=== PATIENT | male | born 1945 | race Caucasian/White ===

== ENCOUNTER → 2019-08-24 | Outpatient (CLI) | payer MEDICARE ==
[~2019-08-24] MED LIST: ALBU3IS INH; ALBU90OI INH; ALLO300 PO; AMLO10 PO; ATOR10 PO; BUDE10.22 INH; CARV25 PO; DOCU100 PO; DULO30 PO; FURO20 PO; GABA100 PO; IBUP600 PO; INDO25 PO; LOSA50 PO; POTA8 PO; QUET25 PO; SILD50TA PO; TRAZ50 PO; ZOLP5 PO
[2019-08-24 19:32] LABS: BASOPHILS ABSOLUTE AUTO 0.04 K/mm3 (0.00-0.23); BASOPHILS PERCENT AUTO 1 % (0-2); EOSINOPHILS ABSOLUTE AUTO 0.11 K/mm3 (0.00-0.68); EOSINOPHILS PERCENT AUTO 1 % (0-6); Hematocrit 47.2 % (37.0-53.0); Hemoglobin 15.8 g/dL (13.5-17.5); IMMATURE GRAN ABSOLUTE AUTO 0.02 K/mm3 (0.00-0.10); IMMATURE GRAN PERCENT AUTO 0 % (0-1); LYMPHOCYTES ABSOLUTE AUTO 2.68 K/mm3 (0.84-5.20); LYMPHOCYTES PERCENT AUTO 31 % (21-46); MONOCYTES ABSOLUTE AUTO 0.58 K/mm3 (0.16-1.47); MONOCYTES PERCENT AUTO 7 % (4-13); Mean Corpuscular HGB 32.1 pg (26.0-34.0); Mean Corpuscular HGB Conc 33.5 g/dL (31.5-36.5); Mean Corpuscular Volume 96 fL (80-100); Mean Platelet Volume 11.2 fL (9.1-12.4); NEUTROPHILS ABSOLUTE AUTO 5.22 K/mm3 (1.96-9.15); NEUTROPHILS PERCENT AUTO 60 % (41-73); Platelet Count 226 K/mm3 (150-400); RDW Coefficient Variation 13.6 % (11.7-14.2); RDW Standard Deviation 47.6 fL (35.1-46.3); Red Blood Cell Count 4.92 M/mm3 (4.30-5.90); White Blood Cell Count 8.65 K/mm3 (4.00-11.30)
[2019-08-24 20:18] LABS: Very Low Density Lipoprot Chol 22 mg/dL (6-32)
[2019-08-24 20:26] LABS: Alanine Aminotransfer (ALT/SGP 15 U/L (12-78); Albumin, Blood 3.4 g/dL (3.4-5.0); Albumin/Globulin Ratio 0.9 (0.8-1.8); Alk Phos 94 U/L (50-136); Anion Gap 9 mmol/L (6-16); Aspartate Aminotrans (AST/SGOT 15 U/L (12-37); Bilirubin, Total 0.9 mg/dL (0.1-1.0); Blood Urea Nitrogen 27 mg/dL (8-24); Bun/Creatinine Ratio 19.4 (12.0-20.0); CO2, Blood 30 mmol/L (21-32); Calcium, Blood 9.4 mg/dL (8.5-10.1); Chloride, Blood 100 mmol/L (98-108); Cholesterol 204 mg/dL (50-200); Creatinine, Blood 1.39 mg/dL (0.60-1.20); Globulin, Blood 3.9 g/dL (2.2-4.0); Glomerular Filtration Rate 53 (60-); Glucose, Blood 125 mg/dL (70-99); HDL Cholesterol 34 mg/dL (>39); LDL Direct Measurement 150 mg/dL (0-130); LDL/HDL RATIO 4.4; Low Density Lipoprotein Chol 148 mg/dL (0-110); Potassium, Blood 3.9 mmol/L (3.5-5.5); Sodium, Blood 139 mmol/L (136-145); Total Protein, Blood 7.3 g/dL (6.4-8.2); Triglycerides 110 mg/dL (30-160)
== END | disposition home or self-care (01) ==
LOC: LAB SHORT 12:10 → LAB 12:10
PROVIDERS: Nurse Practitioner Family
DX: I10 Essential (primary) hypertension (principal)
CPT/HCPCS: 80053; 80061; 83721; 85025

== ENCOUNTER → 2020-09-13 | Outpatient (CLI) | payer MEDICARE ==
[2020-09-13 17:33] LABS: BASOPHILS ABSOLUTE AUTO 0.03 K/mm3 (0.00-0.23); BASOPHILS PERCENT AUTO 0 % (0-2); EOSINOPHILS ABSOLUTE AUTO 0.12 K/mm3 (0.00-0.68); EOSINOPHILS PERCENT AUTO 2 % (0-6); Hematocrit 41.9 % (37.0-53.0); Hemoglobin 14.4 g/dL (13.5-17.5); IMMATURE GRAN ABSOLUTE AUTO 0.02 K/mm3 (0.00-0.10); IMMATURE GRAN PERCENT AUTO 0 % (0-1); LYMPHOCYTES ABSOLUTE AUTO 1.82 K/mm3 (0.84-5.20); LYMPHOCYTES PERCENT AUTO 26 % (21-46); MONOCYTES ABSOLUTE AUTO 0.41 K/mm3 (0.16-1.47); MONOCYTES PERCENT AUTO 6 % (4-13); Mean Corpuscular HGB 33.3 pg (26.0-34.0); Mean Corpuscular HGB Conc 34.4 g/dL (31.5-36.5); Mean Corpuscular Volume 97 fL (80-100); Mean Platelet Volume 10.7 fL (9.1-12.4); NEUTROPHILS PERCENT AUTO 65 % (41-73); Platelet Count 243 K/mm3 (150-400); RDW Coefficient Variation 15.2 % (11.7-14.2); RDW Standard Deviation 52.5 fL (35.1-46.3); Red Blood Cell Count 4.32 M/mm3 (4.30-5.90)
[2020-09-13 18:07] LABS: Uric Acid, Blood 4.2 mg/dL (3.5-7.2)
[2020-09-13 18:42] LABS: Albumin, Blood 3.2 g/dL (3.4-5.0); Albumin/Globulin Ratio 0.9 (0.8-1.8); Bilirubin, Total 0.3 mg/dL (0.1-1.0); Bun/Creatinine Ratio 24.6 (12.0-20.0); Calcium, Blood 8.7 mg/dL (8.5-10.1); Creatinine, Blood 1.26 mg/dL (0.60-1.20); Globulin, Blood 3.5 g/dL (2.2-4.0); Potassium, Blood 3.1 mmol/L (3.5-5.5); Total Protein, Blood 6.7 g/dL (6.4-8.2)
[2020-09-13 18:55] LABS: Cholesterol 175 mg/dL (50-200); HDL Cholesterol 29 mg/dL (>39); LDL/HDL RATIO 3.6; Low Density Lipoprotein Chol 105 mg/dL (0-110); Triglycerides 204 mg/dL (30-160); Very Low Density Lipoprot Chol 40 mg/dL (6-32)
== END | disposition home or self-care (01) ==
LOC: LAB 16:55
PROVIDERS: Nurse Practitioner Family
DX: E78.5 Hyperlipidemia, unspecified (principal); M10.9 Gout, unspecified; I10 Essential (primary) hypertension
CPT/HCPCS: 80053; 80061; 84550; 85025

== ENCOUNTER 2021-10-11 12:53 | Observation (INO) | payer OTHER ==
[~2021-10-11] VITALS: Ht 170.2 cm; Wt 80.5 kg
[2021-10-11 14:07] LABS: BASOPHILS ABSOLUTE AUTO 0.03 K/mm3 (0.00-0.23); BASOPHILS PERCENT AUTO 0 % (0-2); EOSINOPHILS ABSOLUTE AUTO 0.03 K/mm3 (0.00-0.68); EOSINOPHILS PERCENT AUTO 0 % (0-6); Hemoglobin 17.4 g/dL (13.5-17.5); IMMATURE GRAN ABSOLUTE AUTO 0.03 K/mm3 (0.00-0.10); IMMATURE GRAN PERCENT AUTO 0 % (0-1); LYMPHOCYTES ABSOLUTE AUTO 1.31 K/mm3 (0.84-5.20); LYMPHOCYTES PERCENT AUTO 14 % (21-46); MONOCYTES ABSOLUTE AUTO 0.62 K/mm3 (0.16-1.47); MONOCYTES PERCENT AUTO 7 % (4-13); Mean Corpuscular HGB 32.6 pg (26.0-34.0); Mean Corpuscular HGB Conc 36.3 g/dL (31.5-36.5); Mean Corpuscular Volume 90 fL (80-100); Mean Platelet Volume 11.4 fL (9.1-12.4); NEUTROPHILS ABSOLUTE AUTO 7.46 K/mm3 (1.96-9.15); NEUTROPHILS PERCENT AUTO 79 % (41-73); Platelet Count 228 K/mm3 (150-400); RDW Coefficient Variation 12.5 % (11.7-14.2); Red Blood Cell Count 5.34 M/mm3 (4.30-5.90); White Blood Cell Count 9.48 K/mm3 (4.00-11.30)
[2021-10-11 14:15] LABS: Albumin, Blood 3.3 g/dL (3.4-5.0); Albumin/Globulin Ratio 0.8 (0.8-1.8); Bilirubin, Total 1.9 mg/dL (0.1-1.0); Bun/Creatinine Ratio 9.3 (12.0-20.0); Calcium, Blood 9.4 mg/dL (8.5-10.1); Creatinine, Blood 1.61 mg/dL (0.60-1.20); Globulin, Blood 4.3 g/dL (2.2-4.0); Potassium, Blood 2.9 mmol/L (3.5-5.5); Total Protein, Blood 7.6 g/dL (6.4-8.2); Troponin I 0.026 ng/mL (0.000-0.040)
[2021-10-11 15:23] LABS: Influenza A, PCR NEGATIVE (NEGATIVE); Influenza B, PCR NEGATIVE (NEGATIVE); Resp Syncytial Virus, PCR NEGATIVE (NEGATIVE); SARS-Cov-2 (COVID-19) PCR, MMC NEGATIVE (NEGATIVE)
[2021-10-11] MEDS ORDERED: Ventolin/Proventil INH (16:19)
[2021-10-11] MEDS ORDERED: ALLO300 PO (16:21)
[2021-10-11] MEDS ORDERED: AMLO10 PO (16:22)
[2021-10-11] MEDS ORDERED: ASPI81CH PO (16:23)
[2021-10-11] MEDS ORDERED: ATOR10 PO (16:24)
[2021-10-11] MEDS ORDERED: Symbicort 160 mcg-4. INH (16:25)
[2021-10-11] MEDS ORDERED: COREG25 MG PO (16:26)
[2021-10-11] MEDS ORDERED: CYMBALTA30 M1 PO (16:27)
[2021-10-11] MEDS ORDERED: GABA100 PO (16:29)
[2021-10-11] MEDS ORDERED: MEMA10 PO (16:30)
--- NOTE | 2021-10-11 19:25 | NUR ---
PT HERE VIA TOD FROM ER. PT ABLE TO STAND AND TRANSFER HIMSELF TO MEDICAL FLOOR BED. PT DENIES ANY CHEST PAIN. IV'S INFUSING TO LEFT WRIST IV SITE WITHOUT COMPLICATIONS. PT CURRENTLY ON THE TELEPHONE WITH HIS BROTHER. CALL LIGHT REVIEWED WITH PATIENT.
[2021-10-11 21:43] LABS: Creatine Kinase MB 3.8 ng/mL (0.0-3.6); Creatine Kinase MB Index 2.4 (0.0-4.0); Troponin I 0.035 ng/mL (0.000-0.040)
--- NOTE | 2021-10-12 02:33 | NUR ---
PT CONTINUES TO DENY CHEST PAIN. PT IS AWAKE, WATCHING TV. WARM BLANKET GIVEN. PT IS ANTICIPATING GOING HOME THIS MORNING. PT DENIES SOB, PT ON RA. CALL LIGHT WITHIN REACH. BED IN LOW POSITION. PT HAS USED THE CALL LIGHT APPROPRIATELY.
--- NOTE | 2021-10-12 04:19 | NUR ---
AM LABS DRAWN. DECAF COFFEE PROVIDED PER REQUEST OF PATIENT. PT HASN'T SLEPT TONIGHT. PT CONTINUES TO DENY SOB/CHEST PAIN. CALL LIGHT WITHIN REACH. BED ALARM ON FOR PT SAFETY.
[2021-10-12 04:23] LABS: Hematocrit 37.9 % (37.0-53.0); Hemoglobin 13.9 g/dL (13.5-17.5); Mean Corpuscular HGB Conc 36.7 g/dL (31.5-36.5); Mean Corpuscular Volume 90 fL (80-100); Mean Platelet Volume 10.1 fL (9.1-12.4); Platelet Count 171 K/mm3 (150-400); RDW Coefficient Variation 12.5 % (11.7-14.2); RDW Standard Deviation 41.1 fL (35.1-46.3); Red Blood Cell Count 4.21 M/mm3 (4.30-5.90); White Blood Cell Count 8.05 K/mm3 (4.00-11.30)
[2021-10-12 05:01] LABS: Anion Gap 7 mmol/L (6-16); Blood Urea Nitrogen 16 mg/dL (8-24); CHOL/HDL RATIO 3.7; CO2, Blood 22 mmol/L (21-32); CPK Creatine Kinase 186 U/L (39-308); Calcium, Blood 8.5 mg/dL (8.5-10.1); Chloride, Blood 110 mmol/L (98-108); Cholesterol 118 mg/dL (50-200); Creatine Kinase MB 4.5 ng/mL (0.0-3.6); Creatine Kinase MB Index 2.4 (0.0-4.0); Creatinine, Blood 1.45 mg/dL (0.60-1.20); Glomerular Filtration Rate 47 (60-); Glucose, Blood 87 mg/dL (70-99); HDL Cholesterol 32 mg/dL (>39); LDL/HDL RATIO 2.1; Low Density Lipoprotein Chol 66 mg/dL (0-110); Potassium, Blood 3.5 mmol/L (3.5-5.5); Sodium, Blood 139 mmol/L (136-145); Triglycerides 100 mg/dL (30-160); Troponin I 0.036 ng/mL (0.000-0.040); Very Low Density Lipoprot Chol 20 mg/dL (6-32)
--- NOTE | 2021-10-12 05:21 | NUR ---
SHIFT SUMMARY - PT HAS CONTINUED TO DENY CHEST PAIN/DISCOMFORT OF SOB. PT IS ANTICIPATING DC HOME TODAY. BENADRYL GIVEN PO WITHOUT THE DESIRED RESULT OF SLEEP TONIGHT. PT ACCIDENTALLY PULLED OUT HIS LEFT WRIST IV SITE. R AC IV SITE WNL. PT DID HAVE LOOSE STOOLS LAST NOC. PT HAS DECAF COFFEE AT BEDSIDE. CALL LIGHT WITHIN REACH. BED IN LOW POSITION. FLUIDS AT BEDSIDE. WILL CONTINUE TO MONITOR UNTIL AM SHIFT CHANGE.
--- NOTE | 2021-10-12 18:18 | NUR ---
ECHOCARDIOGRAM COMPLETE
--- NOTE | 2021-10-12 18:36 | NUR ---
SHIFT SUMMARY PT DID GET A VISIT FROM MD AFTER PREVIOUS EPISODE AND C/O ANXIETY NOTED. SHE DID ORDER A 1 TIME DOSE OF ATIVAN WHICH WAS GIVEN. PT WAS STILL A BIT ANXIOUS AND WANTING TO LEAVE BUT SEEN AND SPOKE TO DR. MYERS AND AGREED TO STAY UNTIL TOMORROW AND SEE HOW NIGHT GOES. PLAN IS TO SEE PT/OT IN AM AND SEE RECOMMENDATIONS THEN POSS DC HOME. VSS NOW AND BP IS BETTER AFTER ADDING NEW NORVASC ORDER. NAD NOTED. REMAINS ON ROOM AIR WITH NORMAL SATS. NO C/O SOB, PAIN, OR DISCOMFORT VOICED. WILL CONTINUE TO MONITOR IN CARE.
--- NOTE | 2021-10-13 03:44 | NUR ---
PATIENT SLEPT IN SHORT INCREMENTS LAST NIGHT. WHEN AWAKE HE VERBALIZED THAT HE IS CONCERNED OVER COMING TO THE LAST PART OF HIS LIFE. THE PATIENT VERBALIZES THAT HE KNOWS HE'S UNSTEADY ON HIS FEET AND THAT HE IS SOMETIMES FORGETFUL. A& O. VERY ANXIOUS AT TIMES. VITALS REVIEWED.
[2021-10-13] MEDS ORDERED: ALLO100 PO (12:19)
[2021-10-13] MEDS ORDERED: LOSA50 PO (12:35)
[2021-10-13] MEDS ORDERED: SYMBICORT 160-4.6 GM INH (13:34)
--- NOTE | 2021-10-13 15:41 | NUR ---
PT DISCHARGED TO HOME TODAY WITH DISCHARGE ORDERS. PT HAS BEEN VERY ANXIOUS MOST OF THE SHIFT, BUT WAS COOPERATIVE, REDIRECTABLE AND PLEASANT. PT ABLE TO PARTICIPATE WITH PHYSICAL THERAPIST, PT SAFE TO RELEASE TO HOME WALKER AND CANE AVAILABLE PER PT. PT HAS BEEN AMBULATORY ALL SHIFT. DENIES ANY PAIN/PRESSURE, BP STABLE WAS RECHECKED BEFORE DISCHARGE PER DR DINH BP 109/81. DISCHARGE INSTRUCTIONS DISCLOSED WITH THE PT, PT VERBALIZED UNDERSTANDING. PRESCRIPTION SENT TO [facility]. ALL BELONGINGS SENT WITH THE PT, MEREDITH'S(BEST FRIEND) DAUGHTER PROVIDED TRANSPORTATION. PT ACCOMPANIED VIA WHEELCHAIR FOR TRANSPORT.
== END 2021-10-13 15:06 | disposition home or self-care (01) ==
LOC: ER 12:53 → ERHOLD 12:54 → MEDS 19:30
PROVIDERS: Emergency Medicine; Student in an Organized Health Care Education/Training Program; ADMIT Internal Medicine
DX: R07.2 Precordial pain (principal); N17.9 Acute kidney failure, unspecified; I13.0 Hypertensive heart and chronic kidney disease with heart failure and stage 1 through stage 4 chronic kidney disease, or unspecified chronic kidney disease; N18.31 Chronic kidney disease, stage 3a; I50.9 Heart failure, unspecified; E83.42 Hypomagnesemia; E87.6 Hypokalemia; M19.90 Unspecified osteoarthritis, unspecified site; E78.5 Hyperlipidemia, unspecified; J44.9 Chronic obstructive pulmonary disease, unspecified; M10.9 Gout, unspecified; F03.90 Unspecified dementia, unspecified severity, without behavioral disturbance, psychotic disturbance, mood disturbance, and anxiety; F43.10 Post-traumatic stress disorder, unspecified; F32.A Depression, unspecified; Z88.8 Allergy status to other drugs, medicaments and biological substances; Z91.013 Allergy to seafood; Z96.642 Presence of left artificial hip joint; Z20.822 Contact with and (suspected) exposure to COVID-19
CPT/HCPCS: 0241U; 36415; 71046; 80048; 80053; 80061; 82550; 82553; 83735; 83880; 84145; 84484; 85025; 85027; 93005; 93010; 93306; 94640; 94664; 94760; 96365; 96366; 96367; 96368; 97116; 97162; 97530; 99285-25; A9270; J1650; J3475; J3480; J7030

== ENCOUNTER 2021-10-14 14:16 | Emergency (ER) | payer OTHER ==
[~2021-10-14] VITALS: Ht 162.6 cm; Wt 74.8 kg
[~2021-10-14 14:16] MED LIST changes: +ALLO100 PO; +ASPI81CH PO; +COREG25 MG PO; +CYMBALTA30 M1 PO; +MEMA10 PO; +SYMBICORT 160-4.6 GM INH; +Symbicort 160 mcg-4. INH; +Ventolin/Proventil INH
== END 2021-10-14 14:59 | disposition home or self-care (01) ==
LOC: ER 14:16
DX: F41.9 Anxiety disorder, unspecified (principal); Z88.8 Allergy status to other drugs, medicaments and biological substances; Z91.013 Allergy to seafood; Z91.018 Allergy to other foods; Z79.899 Other long term (current) drug therapy; Z79.82 Long term (current) use of aspirin; I50.9 Heart failure, unspecified; N18.9 Chronic kidney disease, unspecified; E78.5 Hyperlipidemia, unspecified; M10.9 Gout, unspecified; J44.9 Chronic obstructive pulmonary disease, unspecified; Z87.891 Personal history of nicotine dependence
CPT/HCPCS: 99283

== ENCOUNTER 2022-03-09 21:59 | Inpatient (IN) | payer OTHER ==
[~2022-03-09] VITALS: Ht 177.8 cm; Wt 88.1 kg
[~2022-03-09 21:59] MED LIST changes: -CYMBALTA30 M1 PO; +DULO60 PO
[2022-03-09 22:40] LABS: BASOPHILS ABSOLUTE AUTO 0.05 K/mm3 (0.00-0.23); BASOPHILS PERCENT AUTO 0 % (0-2); EOSINOPHILS ABSOLUTE AUTO 0.03 K/mm3 (0.00-0.68); EOSINOPHILS PERCENT AUTO 0 % (0-6); Hematocrit 47.1 % (37.0-53.0); Hemoglobin 16.8 g/dL (13.5-17.5); IMMATURE GRAN ABSOLUTE AUTO 0.09 K/mm3 (0.00-0.10); IMMATURE GRAN PERCENT AUTO 1 % (0-1); LYMPHOCYTES ABSOLUTE AUTO 2.06 K/mm3 (0.84-5.20); LYMPHOCYTES PERCENT AUTO 14 % (21-46); MONOCYTES PERCENT AUTO 7 % (4-13); Mean Corpuscular HGB 32.5 pg (26.0-34.0); Mean Corpuscular HGB Conc 35.7 g/dL (31.5-36.5); Mean Corpuscular Volume 91 fL (80-100); Mean Platelet Volume 10.4 fL (9.1-12.4); NEUTROPHILS ABSOLUTE AUTO 11.72 K/mm3 (1.96-9.15); NEUTROPHILS PERCENT AUTO 78 % (41-73); Platelet Count 231 K/mm3 (150-400); RDW Coefficient Variation 12.7 % (11.7-14.2); RDW Standard Deviation 42.4 fL (35.1-46.3); Red Blood Cell Count 5.17 M/mm3 (4.30-5.90); White Blood Cell Count 14.95 K/mm3 (4.00-11.30)
[2022-03-09 23:13] LABS: Albumin, Blood 3.4 g/dL (3.4-5.0); Albumin/Globulin Ratio 0.9 (0.8-1.8); Bilirubin, Total 2.3 mg/dL (0.1-1.0); Bun/Creatinine Ratio 14.6 (12.0-20.0); Calcium, Blood 8.9 mg/dL (8.5-10.1); Creatinine, Blood 1.44 mg/dL (0.60-1.20); Globulin, Blood 3.8 g/dL (2.2-4.0); Potassium, Blood 3.2 mmol/L (3.5-5.5); Total Protein, Blood 7.2 g/dL (6.4-8.2)
[2022-03-10 03:12] LABS: Source, Urine Straight Cath
[2022-03-10 03:43] LABS: Bilirubin, Urine Neg (Neg); Blood, Urine 1+ (Neg); Glucose Qualitative, Urine Neg (Neg); Ketones, Urine 3+ (Neg); Leukocyte Esterase, Urine Neg (Neg); Nitrite, Urine Neg (Neg); Protein, Urine 2+ (Neg); Specific Gravity, Urine 1.025 (1.003-1.022); Urobilinogen, Urine 1+ (Normal)
[2022-03-10 04:03] LABS: Appearance, Urine Clear (Clear); Color, Urine Yellow (P-Yellow)
[2022-03-10 04:06] LABS: Bacteria Rare /hpf; Granular Casts Rare /lpf (0); Red Blood Cells, Urine 0-2 /hpf (0-2); Squamous Epithelial Cells Few /hpf (Few); White Blood Cells, Urine 0-2 /hpf (0-5)
[2022-03-10 04:07] LABS: Hyaline Casts Rare /lpf (0-2)
--- NOTE | 2022-03-10 07:14 | NUR ---
PT ADMITTED AT 0633 AM FROM ER. PT A & O TO SELF AND PLACE. IV TO L)AC. PT SITUATED IN ROOM. 2-ASSIST. REPORT RECEIVED BY AKHIL LOWE NURSE.
--- NOTE | 2022-03-10 18:50 | NUR ---
SHIFT SUMMARY PT ADMITTED JUST PRIOR TO DAY SHIFT. IV FLUIDS STARTED. UNABLE TO VERBALIZE NEEDS CLEARLY AND ANSWER QUESTIONS APPROPRIATELY BUT WOULD FOCUS ON SAYING THE SAME PHRASES OVER AND OVER. APPARENTLY RECEIVED MORPHINE IN ED FOR PAIN AND POA REPORTS SIGNIFICANT FAMILY HX OF MORPHINE REACTIONS WITH MENTAL STATUS CHANGES. SPEECH HAS CLEARED UP THROUGH THE SHIFT BUT STILL CAN HAVE TROUBLE WORD FINDING. REPORTED CRAMPING TO LLE THIS AFTERNOON AND MEDICATED WITH EFFECT.
--- NOTE | 2022-03-11 04:33 | NUR ---
PT A & O TP SELF & PLACE. CONFUSED AT TIMES. V/S WNL. IV TO L) AC INFUSING NS @75 ML/HR. PT GOT A BOLUS OF NS FOR HYPOTENSIVE EPISODE. BEDREST. 2-ASSIST. HIP PRECAUTIONS IN PLACE. PRN FENTANYL GIVEN FOR PAIN PER EMAR. NPO SINCE MIDNIGHT. WILL CONTINUE TO MONITOR.
[2022-03-11 05:03] LABS: BASOPHILS ABSOLUTE AUTO 0.03 K/mm3 (0.00-0.23); BASOPHILS PERCENT AUTO 0 % (0-2); EOSINOPHILS ABSOLUTE AUTO 0.11 K/mm3 (0.00-0.68); EOSINOPHILS PERCENT AUTO 1 % (0-6); Hematocrit 39.8 % (37.0-53.0); Hemoglobin 13.5 g/dL (13.5-17.5); IMMATURE GRAN ABSOLUTE AUTO 0.06 K/mm3 (0.00-0.10); IMMATURE GRAN PERCENT AUTO 1 % (0-1); LYMPHOCYTES ABSOLUTE AUTO 1.88 K/mm3 (0.84-5.20); LYMPHOCYTES PERCENT AUTO 15 % (21-46); MONOCYTES ABSOLUTE AUTO 1.08 K/mm3 (0.16-1.47); MONOCYTES PERCENT AUTO 9 % (4-13); Mean Corpuscular HGB 32.8 pg (26.0-34.0); Mean Corpuscular HGB Conc 33.9 g/dL (31.5-36.5); Mean Platelet Volume 10.5 fL (9.1-12.4); NEUTROPHILS ABSOLUTE AUTO 9.07 K/mm3 (1.96-9.15); NEUTROPHILS PERCENT AUTO 74 % (41-73); Platelet Count 167 K/mm3 (150-400); RDW Standard Deviation 46.2 fL (35.1-46.3); Red Blood Cell Count 4.12 M/mm3 (4.30-5.90); White Blood Cell Count 12.23 K/mm3 (4.00-11.30)
[2022-03-11 05:04] LABS: Mean Corpuscular Volume 97 fL (80-100)
[2022-03-11 05:17] LABS: Albumin, Blood 2.6 g/dL (3.4-5.0); Albumin/Globulin Ratio 0.8 (0.8-1.8); Bilirubin, Total 1.6 mg/dL (0.1-1.0); Bun/Creatinine Ratio 21.8 (12.0-20.0); Calcium, Blood 7.7 mg/dL (8.5-10.1); Creatinine, Blood 1.24 mg/dL (0.60-1.20); Globulin, Blood 3.1 g/dL (2.2-4.0); Potassium, Blood 3.2 mmol/L (3.5-5.5); Thyroid Stimulating Hormone 0.587 uIU/mL (0.360-4.800); Total Protein, Blood 5.7 g/dL (6.4-8.2)
[2022-03-11 09:06] LABS: SARS-Cov-2 (COVID-19) PCR, MMC NEGATIVE (NEGATIVE)
--- NOTE | 2022-03-11 17:57 | NUR ---
SHIFT SUMMARY NO ACUTE CHANGES DURING SHIFT. PTS PROCEDURE CANCELED AND RESCHEDULED FOR TOMORROW. PT CONTINUED HALLUCINATIONS WITH PRN PAIN MEDICATION. CONTACTED MD, PRN TORADOL ORDERED. WILL REASSESS FOR EFFECTIVENESS. PT ALERT, ORIENTED TO TIME/SELF, STILL CONFUSED. WILL CONTINUE TO MONITOR.
--- NOTE | 2022-03-11 23:46 | NUR ---
REFUSED HS MEDS, SDREAMING A INTERVALS SINCE. CALL PLACED TO MD [employer] B[employer] DIRECT[employer]. ORDERS FOR IM MED OBTAINED AND GIVEN - SEE MAR FOR DEAILS. JASKARAN [employer] B[employer] DIRECTOR LIGHT IN REACH
--- NOTE | 2022-03-12 03:47 | NUR ---
PEDICAB DRIVER SUMMARY AT SHIFT COMMENCE WAS OBSERVED TO BE HAVING AN APPARENT DISCUSSION WITH OTHERS IN THE ROOM THAT ONLY HE COULD SEE. THANKED ME FOR BEING THE "COOK" AT THE RESTAURANT, I EXPLAINED TO HIM THAT I WAS HIS NURSE. AFFECT WAS CHEERFUL UNTIL LATER, AROUND HS, TRIED TO CLIMB OUT OF BED. HAS LEFT HIP ISSUES (POSSIBLE DISLOCATION OR FX FROM BEING FOUND DOWN AT HOME - SEE HX). WAS REDIRECTED AND BECAME ANGRY, NOT REDIRECTABLE. MD WAS NOTIFIED AND PLACED IN JASKARAN VEST. ESCALATED FROM THERE, INTERMITTENT SCREAMING AND ARGUING WITH STAFF AND OTHERS ONLY HE COULD SEE IN THE ROOM. THEN ATTEMPTED TO PULL OUT CATHETER. MD AGAIN NOTIFIED, BILAT WRIST RESTRAINTS ORDERED AND IM MED GIVEN. SEE MAR FOR DETAILS. EVENTUALLY YELLING DECREASED BUT STILL ADAMANT ABOUT NOT BEING REDIRECTABLE. NPO SINCE 0000 FOR SCHEDULED PROCEDURE RE LEFT HIP LATER TODAY. CALL LIGHT IN REACH
[2022-03-12 04:29] LABS: Hematocrit 37.2 % (37.0-53.0); Hemoglobin 12.9 g/dL (13.5-17.5); Mean Corpuscular HGB 32.7 pg (26.0-34.0); Mean Corpuscular HGB Conc 34.7 g/dL (31.5-36.5); Mean Corpuscular Volume 94 fL (80-100); Mean Platelet Volume 10.5 fL (9.1-12.4); Platelet Count 178 K/mm3 (150-400); RDW Coefficient Variation 12.9 % (11.7-14.2); RDW Standard Deviation 44.6 fL (35.1-46.3); Red Blood Cell Count 3.94 M/mm3 (4.30-5.90); White Blood Cell Count 9.57 K/mm3 (4.00-11.30)
[2022-03-12 04:50] LABS: Albumin, Blood 2.7 g/dL (3.4-5.0); Albumin/Globulin Ratio 0.8 (0.8-1.8); Bilirubin, Total 1.6 mg/dL (0.1-1.0); Calcium, Blood 8.2 mg/dL (8.5-10.1); Creatinine, Blood 1.11 mg/dL (0.60-1.20); Globulin, Blood 3.3 g/dL (2.2-4.0); Potassium, Blood 3.4 mmol/L (3.5-5.5)
--- NOTE | 2022-03-12 16:36 | NUR ---
ARRIVED FROM PACU TO ROOM 226 PT IS POST L HIP REVISION, ORIGINALLY ADMITTED TO MEDICAL FLOOR. PT IS SLEEPY, BUT EASILY WAKES AND INTERACTS WITH STAFF. PT IS CALM AT THIS TIME AND REPORTS PAIN IS OKAY. PT HAS A LEFT HIP AQUACELL THAT IS C/D/I. ABDUCTION PILLOW IN PLACE. SHERWOOD IS TO GRAVITY AND DRAINING YELLOW URINE. BED ALARM PLACED. INSTRUCTED PT NOT TO GET UP.
--- NOTE | 2022-03-12 17:00 | NUR ---
AFTER SURGERY PT TRANSFERED TO ROOM 226. CALLED REPORT TO SIVA PLUMMER. NO FURTHER QUESTIONS AT THE TIME OF REPORT.
--- NOTE | 2022-03-12 18:18 | NUR ---
SHIFT SUMMARY PT ARRIVED TO SURGICAL FLOOR FROM PACU S/P LEFT HIP REVISION. PT HAS MOSTLY BEEN SLEEPING POST PROCEDURE. PT HASN'T ATTEMPTED TO GET OUT OF BED AT THIS TIME, BED ALARM IS IN PLACE. LEFT HIP INCISION IS C/D/I AND ABDUCTOR PILLOW IN PLACE. VITALS HAVE REMAINED STABLE.
--- NOTE | 2022-03-13 04:11 | NUR ---
SHIFT SUMMARY PT POD 0 LEFT HIP REVISION, HE HAS DONE WELL POST OP AND HAS NOT COMPLAINED OF ANY PAIN. HE HAS SLEPT MOST OF THE NIGHT. ABDUCTOR PILLOW IN PLACE, SURGICAL DRESSING TO HIP C/D/I. PT PLESANTLY CONFUSED AND HAS BEEN COOPERATIVE WITH CARE THIS SHIFT. BED IN LOWEST POSITION, CALL LIGHT WITHIN REACH.
[2022-03-13 05:28] LABS: Hematocrit 36.8 % (37.0-53.0); Hemoglobin 12.8 g/dL (13.5-17.5); Mean Corpuscular HGB 32.6 pg (26.0-34.0); Mean Corpuscular HGB Conc 34.8 g/dL (31.5-36.5); Mean Corpuscular Volume 94 fL (80-100); Mean Platelet Volume 10.8 fL (9.1-12.4); Platelet Count 180 K/mm3 (150-400); RDW Coefficient Variation 12.7 % (11.7-14.2); RDW Standard Deviation 43.9 fL (35.1-46.3); Red Blood Cell Count 3.93 M/mm3 (4.30-5.90); White Blood Cell Count 12.53 K/mm3 (4.00-11.30)
[2022-03-13 05:37] LABS: Albumin, Blood 2.5 g/dL (3.4-5.0); Albumin/Globulin Ratio 0.8 (0.8-1.8); Bilirubin, Total 0.9 mg/dL (0.1-1.0); Bun/Creatinine Ratio 28.3 (12.0-20.0); Creatinine, Blood 0.99 mg/dL (0.60-1.20); Globulin, Blood 3.2 g/dL (2.2-4.0); Magnesium, Blood 1.8 mg/dL (1.6-2.4); Total Protein, Blood 5.7 g/dL (6.4-8.2)
--- NOTE | 2022-03-13 10:07 | NUR ---
PT WAS NOT IN RESTRAINTS AT START OF SHIFT. PT RESTING WITH EYES SHUT RR E/U, NO S/S OF DISTRESS.
--- NOTE | 2022-03-13 18:32 | NUR ---
PT IS A/O X 4, ONE PERSON ASSIST FOR TX. PT HAS BEEN PLEASANT AND COOPERATIVE THROUGHOUT SHIFT. PT WEARING ABDUCTION PILLOW BETWEEN LEGS WHILE IN BED. PT PAIN MANAGED WITH OXYCODONE AT THIS TIME. DRESSING TO LEFT HIP CDI AT END OF SHIFT. PT WATCHING TV IN BED, RR E/U. PT REPORTS PAIN MANAGED AT THIS TIME. SHERWOOD IN PLACE REMAINS PATENT DRAINING CLEAR YELLOW URINE.
[2022-03-14 04:35] LABS: Hemoglobin 11.7 g/dL (13.5-17.5); Mean Corpuscular HGB 32.7 pg (26.0-34.0); Mean Corpuscular HGB Conc 34.4 g/dL (31.5-36.5); Mean Corpuscular Volume 95 fL (80-100); Mean Platelet Volume 10.2 fL (9.1-12.4); Platelet Count 188 K/mm3 (150-400); RDW Coefficient Variation 12.8 % (11.7-14.2); RDW Standard Deviation 44.1 fL (35.1-46.3); Red Blood Cell Count 3.58 M/mm3 (4.30-5.90); White Blood Cell Count 10.79 K/mm3 (4.00-11.30)
[2022-03-14 04:57] LABS: Albumin, Blood 2.4 g/dL (3.4-5.0); Albumin/Globulin Ratio 0.8 (0.8-1.8); Bilirubin, Total 0.6 mg/dL (0.1-1.0); Bun/Creatinine Ratio 27.7 (12.0-20.0); Creatinine, Blood 1.3 mg/dL (0.60-1.20); Globulin, Blood 3.1 g/dL (2.2-4.0); Potassium, Blood 3.9 mmol/L (3.5-5.5); Total Protein, Blood 5.5 g/dL (6.4-8.2)
--- NOTE | 2022-03-14 05:53 | NUR ---
SUMMARY PT A/O TONIGHT.APPROPRIATE.PLEASANT.TOLERATING PO FLUIDS.SHERWOOD OUT AND VOIDING.NEEDS BM. L HEEL SL PINK AND TENDER.HEEL PROTECTORS PLACED.BACK AND BUTTOCKS WITH SCATTERD RED SCRATCHES.BUTTOCKS CREASE RED,MOISTURE BARRIER CREAM PLACED.
[2022-03-14 14:25] LABS: SARS-Cov-2 (COVID-19) PCR, MMC NEGATIVE (NEGATIVE)
--- NOTE | 2022-03-14 15:18 | NUR ---
DISCHARGE SUMMARY PATIENT ALERT AND COOPERATIVE THROUGHOUT SHIFT. DISCHARGE TO SNF ORDERS OBTAINED. REPORT CALLED TO SNF RN. GAVE REPORT ON PATIENT DIAGNOSES AND OPERATIONS, CURRENT STATUS OF PAIN CONTROL, DIET, MEDS, ACTIVITY, INCISION, SKIN, INTAKE AND OUTPUT, NEGATIVE COVID SCREEN, AND PAST MEDICAL HISTORY. PAT[facility] UN[facility]
== END 2022-03-14 15:11 | DRG 466 ==
LOC: ER 21:59 → MEDS 22:00 → SURS 22:00 → MEDS 03-10 06:33 → SURS 03-12 16:30
PROVIDERS: Internal Medicine; Orthopaedic Surgery; Student in an Organized Health Care Education/Training Program; ADMIT Internal Medicine
PROC: 0SPB0JZ Removal of Synthetic Substitute from Left Hip Joint, Open Approach (ICD-10-PCS; 2022-03-12)
PROC: 0SPB09Z Removal of Liner from Left Hip Joint, Open Approach (ICD-10-PCS; 2022-03-12)
PROC: 0SUE09Z Supplement Left Hip Joint, Acetabular Surface with Liner, Open Approach (ICD-10-PCS; 2022-03-12)
PROC: 0SRB0JA Replacement of Left Hip Joint with Synthetic Substitute, Uncemented, Open Approach (ICD-10-PCS; principal; 2022-03-12 12:30)
DX: T84.021A Dislocation of internal left hip prosthesis, initial encounter (principal); G93.41 Metabolic encephalopathy; N17.9 Acute kidney failure, unspecified; I13.0 Hypertensive heart and chronic kidney disease with heart failure and stage 1 through stage 4 chronic kidney disease, or unspecified chronic kidney disease; I50.32 Chronic diastolic (congestive) heart failure; Z20.822 Contact with and (suspected) exposure to COVID-19; D64.9 Anemia, unspecified; E86.0 Dehydration; J44.9 Chronic obstructive pulmonary disease, unspecified; E87.6 Hypokalemia; F03.90 Unspecified dementia, unspecified severity, without behavioral disturbance, psychotic disturbance, mood disturbance, and anxiety; N18.2 Chronic kidney disease, stage 2 (mild); F43.10 Post-traumatic stress disorder, unspecified; E78.5 Hyperlipidemia, unspecified; E78.1 Pure hyperglyceridemia; M10.9 Gout, unspecified; F32.A Depression, unspecified; R41.82 Altered mental status, unspecified; F41.9 Anxiety disorder, unspecified; Z98.890 Other specified postprocedural states; Z79.82 Long term (current) use of aspirin; Z79.51 Long term (current) use of inhaled steroids; Z87.891 Personal history of nicotine dependence; Z79.899 Other long term (current) drug therapy; Z91.013 Allergy to seafood; Z91.018 Allergy to other foods; Z88.8 Allergy status to other drugs, medicaments and biological substances; W18.30XA Fall on same level, unspecified, initial encounter; Y92.099 Unspecified place in other non-institutional residence as the place of occurrence of the external cause
CPT/HCPCS: 27266; 36415; 51702; 70450; 71045; 72125; 73502; 73700; 80053; 81001; 82550; 82607; 82746; 83735; 83880; 84443; 85025; 85027; 86850; 86900; 86901; 87070; 87071; 87075; 87205; 88305; 89060; 94640; 94664; 94760; 96372; 96374-59; 96375; 96376; 97110; 97162; 97530; 99285-25; A9270; C1713; G0378; J0171; J0690; J0735; J1100; J1885; J2270; J2370; J2405; J2704; J2795; J3010; J3480; J7030; J7040; U0004

== ENCOUNTER 2022-05-30 10:42 | Emergency (ER) | payer OTHER ==
[~2022-05-30] VITALS: Ht 177.8 cm; Wt 73.9 kg
[2022-05-30 11:15] LABS: BASOPHILS ABSOLUTE AUTO 0.03 K/mm3 (0.00-0.23); BASOPHILS PERCENT AUTO 0 % (0-2); EOSINOPHILS ABSOLUTE AUTO 0.17 K/mm3 (0.00-0.68); EOSINOPHILS PERCENT AUTO 3 % (0-6); Hematocrit 36.9 % (37.0-53.0); Hemoglobin 12.4 g/dL (13.5-17.5); IMMATURE GRAN ABSOLUTE AUTO 0.02 K/mm3 (0.00-0.10); IMMATURE GRAN PERCENT AUTO 0 % (0-1); LYMPHOCYTES ABSOLUTE AUTO 1.69 K/mm3 (0.84-5.20); LYMPHOCYTES PERCENT AUTO 25 % (21-46); MONOCYTES ABSOLUTE AUTO 0.78 K/mm3 (0.16-1.47); MONOCYTES PERCENT AUTO 11 % (4-13); Mean Corpuscular HGB 31.9 pg (26.0-34.0); Mean Corpuscular HGB Conc 33.6 g/dL (31.5-36.5); Mean Corpuscular Volume 95 fL (80-100); Mean Platelet Volume 10.5 fL (9.1-12.4); NEUTROPHILS ABSOLUTE AUTO 4.22 K/mm3 (1.96-9.15); NEUTROPHILS PERCENT AUTO 61 % (41-73); Platelet Count 197 K/mm3 (150-400); RDW Coefficient Variation 13.1 % (11.7-14.2); RDW Standard Deviation 45.1 fL (35.1-46.3); Red Blood Cell Count 3.89 M/mm3 (4.30-5.90); White Blood Cell Count 6.91 K/mm3 (4.00-11.30)
[2022-05-30] MEDS ORDERED: Seroquel Xr50 MG PO (11:16)
[2022-05-30] MEDS ORDERED: DOCU100 PO (11:18)
[2022-05-30] MEDS ORDERED: Acetaminophen650 M1 PO (11:19)
[2022-05-30] MEDS ORDERED: HYDRA25 PO (11:19)
[2022-05-30] MEDS ORDERED: LORA.5 PO (11:21)
[2022-05-30] MEDS ORDERED: OXYC5 PO (11:21)
[2022-05-30] MEDS ORDERED: ALBU90OI6 INH (11:23)
[2022-05-30 11:35] LABS: Bun/Creatinine Ratio 21.1 (12.0-20.0); Calcium, Blood 8.5 mg/dL (8.5-10.1); Creatinine, Blood 1.23 mg/dL (0.60-1.20); Potassium, Blood 3.8 mmol/L (3.5-5.5)
[2022-05-30 14:35] LABS: Source, Urine Clean Catch
[2022-05-30 14:37] LABS: Appearance, Urine Clear (Clear); Bilirubin, Urine Neg (Neg); Blood, Urine Neg (Neg); Color, Urine Yellow (P-Yellow); Glucose Qualitative, Urine Neg (Neg); Ketones, Urine Neg (Neg); Leukocyte Esterase, Urine Neg (Neg); Nitrite, Urine Neg (Neg); Protein, Urine Neg (Neg); Specific Gravity, Urine 1.015 (1.003-1.022); Urobilinogen, Urine NORM (Normal)
== END 2022-05-30 15:40 | disposition home or self-care (01) ==
LOC: ER 10:42
PROVIDERS: Student in an Organized Health Care Education/Training Program
DX: I95.9 Hypotension, unspecified (principal); F03.90 Unspecified dementia, unspecified severity, without behavioral disturbance, psychotic disturbance, mood disturbance, and anxiety; E86.0 Dehydration; K92.1 Melena; I50.30 Unspecified diastolic (congestive) heart failure; N18.9 Chronic kidney disease, unspecified; E78.5 Hyperlipidemia, unspecified; J44.9 Chronic obstructive pulmonary disease, unspecified; Z79.899 Other long term (current) drug therapy; Z79.82 Long term (current) use of aspirin; Z88.8 Allergy status to other drugs, medicaments and biological substances; Z91.013 Allergy to seafood; Z91.018 Allergy to other foods
CPT/HCPCS: 51701; 80048; 81003; 83605; 85025; 93005; 93010; 96360; 96361; 99285-25; J7030

== ENCOUNTER → 2023-06-03 | Outpatient (CLI) | payer MEDICARE ==
[~2023-06-03] MED LIST changes: +ALBU90OI6 INH; +Acetaminophen650 M1 PO; +HYDRA25 PO; +LORA.5 PO; +OXYC5 PO; +Seroquel Xr50 MG PO
== END | disposition home or self-care (01) ==
LOC: LAB SHORT 16:08 → LAB 16:08
DX: T14.8XXA Other injury of unspecified body region, initial encounter (principal)
CPT/HCPCS: 87070; 87077; 87186; 87205

== ENCOUNTER 2023-07-03 12:07 | Emergency (ER) | payer MEDICARE ==
[~2023-07-03] VITALS: Ht 177.8 cm; Wt 74.8 kg
[2023-07-03 15:19] LABS: BASOPHILS ABSOLUTE AUTO 0.04 K/mm3 (0.00-0.23); BASOPHILS PERCENT AUTO 0 % (0-2); EOSINOPHILS ABSOLUTE AUTO 0.28 K/mm3 (0.00-0.68); EOSINOPHILS PERCENT AUTO 3 % (0-6); Hematocrit 46.3 % (37.0-53.0); Hemoglobin 16.1 g/dL (13.5-17.5); IMMATURE GRAN ABSOLUTE AUTO 0.05 K/mm3 (0.00-0.10); IMMATURE GRAN PERCENT AUTO 1 % (0-1); LYMPHOCYTES ABSOLUTE AUTO 2.01 K/mm3 (0.84-5.20); LYMPHOCYTES PERCENT AUTO 20 % (21-46); MONOCYTES ABSOLUTE AUTO 0.98 K/mm3 (0.16-1.47); MONOCYTES PERCENT AUTO 10 % (4-13); Mean Corpuscular HGB 34.2 pg (26.0-34.0); Mean Corpuscular HGB Conc 34.8 g/dL (31.5-36.5); Mean Corpuscular Volume 98 fL (80-100); Mean Platelet Volume 10.9 fL (9.1-12.4); NEUTROPHILS ABSOLUTE AUTO 6.93 K/mm3 (1.96-9.15); NEUTROPHILS PERCENT AUTO 67 % (41-73); Platelet Count 167 K/mm3 (150-400); RDW Coefficient Variation 13.3 % (11.7-14.2); RDW Standard Deviation 48.3 fL (35.1-46.3); Red Blood Cell Count 4.71 M/mm3 (4.30-5.90); White Blood Cell Count 10.29 K/mm3 (4.00-11.30)
[2023-07-03 17:22] LABS: Albumin, Blood 3.1 g/dL (3.4-5.0); Albumin/Globulin Ratio 0.7 (0.8-1.8); Bilirubin, Total 0.9 mg/dL (0.1-1.0); Bun/Creatinine Ratio 24.5 (12.0-20.0); Calcium, Blood 8.9 mg/dL (8.5-10.1); Creatinine, Blood 1.06 mg/dL (0.60-1.20); Globulin, Blood 4.4 g/dL (2.2-4.0); Potassium, Blood 3.6 mmol/L (3.5-5.5); Total Protein, Blood 7.5 g/dL (6.4-8.2)
[2023-07-03] MEDS ORDERED: SULTRIDS PO (20:06)
[2023-07-03 20:19] VITALS: BP 100/68
== END 2023-07-03 20:19 | disposition home or self-care (01) ==
LOC: ER 12:07
PROVIDERS: Student in an Organized Health Care Education/Training Program
DX: T81.31XA Disruption of external operation (surgical) wound, not elsewhere classified, initial encounter (principal); Z88.8 Allergy status to other drugs, medicaments and biological substances; Z91.013 Allergy to seafood; Z79.899 Other long term (current) drug therapy; Z79.82 Long term (current) use of aspirin; Z87.891 Personal history of nicotine dependence; I50.9 Heart failure, unspecified; N18.9 Chronic kidney disease, unspecified; E78.5 Hyperlipidemia, unspecified; M10.9 Gout, unspecified; J44.9 Chronic obstructive pulmonary disease, unspecified; F43.10 Post-traumatic stress disorder, unspecified
CPT/HCPCS: 36415; 72193; 80053; 85025; 99284-25; A9270; Q9967

== ENCOUNTER → 2023-08-07 | Outpatient (CLI) | payer MEDICARE ==
[~2023-08-07] MED LIST changes: +SULTRIDS PO
== END | disposition home or self-care (01) ==
LOC: LAB 11:53 → LAB SHORT 11:53
DX: S71.002D Unspecified open wound, left hip, subsequent encounter (principal); B95.62 Methicillin resistant Staphylococcus aureus infection as the cause of diseases classified elsewhere
CPT/HCPCS: 87070; 87077; 87186; 87205

== ENCOUNTER → 2023-09-11 | Outpatient (CLI) | payer MEDICARE ==
[2023-09-11 17:49] LABS: Albumin, Blood 2.9 g/dL (3.4-5.0); Albumin/Globulin Ratio 0.7 (0.8-1.8); Bilirubin, Total 0.4 mg/dL (0.1-1.0); Creatinine, Blood 1.13 mg/dL (0.60-1.20); Globulin, Blood 4.4 g/dL (2.2-4.0); Potassium, Blood 3.4 mmol/L (3.5-5.5); Total Protein, Blood 7.3 g/dL (6.4-8.2)
[2023-09-15 17:08] LABS: PSA, Free 0.154 ng/mL
[2023-09-15 17:18] LABS: PSA, %Free 30.9 %; Prostate Specific Antigen 0.497 ng/mL (0.000-4.000)
== END ==
LOC: LAB 15:45 → LAB SHORT 15:45
PROVIDERS: Nurse Practitioner Family
DX: T81.32XD Disruption of internal operation (surgical) wound, not elsewhere classified, subsequent encounter (principal); G89.4 Chronic pain syndrome
CPT/HCPCS: 80053; 84153; 84154